=== PATIENT | female | born 1985 | race African-American/Black ===

== ENCOUNTER 2023-01-28 11:38 | Emergency (ER) | payer OTHER ==
[2023-01-28 12:39] LABS: SARS-CoV-2 NAA Rapid Test Not Detected (NotDetected)
[2023-01-28] MEDS ORDERED: Ibuprofen 200 MG TAB ONE (15:06)
== END 2023-01-28 15:23 | disposition home or self-care (01) ==
LOC: CSHERS 11:38
DX: J10.1 Influenza due to other identified influenza virus with other respiratory manifestations (principal); H92.02 Otalgia, left ear; Z20.822 Contact with and (suspected) exposure to COVID-19; I10 Essential (primary) hypertension; F17.290 Nicotine dependence, other tobacco product, uncomplicated
CPT/HCPCS: 87081; 87430; 99283